=== PATIENT | female | born 1995 | race Caucasian/White ===

== ENCOUNTER → 2017-08-24 | Outpatient (CLI) | payer BC ==
--- NOTE | 2017-08-24 11:53 | Diagnostic Imaging Report ---
OB ultrasound. INDICATION: Spotting. By history, the patient has a positive test. There are no previous exams available for comparison. FINDINGS: The uterus is nongravid and not enlarged measuring 7.6 x 3.4 x 4.7 cm. The endometrial lining is thickened measuring 12 mm (normal 5 mm or less). This finding is nonspecific, however. Correlation with the patient's menstrual cycle would be recommended. There is no focal mass involving the uterus to suggest a fibroid. Both ovaries were identified. Each ovary contains a few subcentimeter follicles. There is also a roughly 1 cm cyst associated with the right ovary. This cyst has a generally benign appearance. There is no solid pelvic mass or free fluid collection to suggest an ectopic . IMPRESSION: 1. There is no evidence for a gestational sac within the uterus. If the patient does indeed have a positive test, then the possibility that there is an ectopic should be the primary concern even though there is no pelvic mass or free fluid collection identified. The absence of a gestational sac within the uterus could also be related to an early or to a blighted ovum. Correlation with the patient's beta hCG levels would be recommended. 2. There are small subcentimeter follicles associated with both ovaries and there is a benign-appearing 1 cm cyst arising from the right ovary. Dictated by: Dictated on workstation # [id number]
== END ==
LOC: RAD 10:46
PROVIDERS: ATTEND Family Medicine
DX: N83.291 Other ovarian cyst, right side (principal)
CPT/HCPCS: 76801; 76817

== ENCOUNTER 2017-09-14 18:41 | Emergency (ER) | payer BC ==
[~2017-09-14] VITALS: Ht 160 cm; Wt 60.8 kg
--- OUTSIDE RECORDS SUMMARY | 2017-09-14 18:46 | XMS REPORT ---
Author Author ROSALBA POWER Organization [employer] Address Unknown Phone Unavailable Care Team Providers Care Waste Baler Name Role Phone ROSALBA POWER CP Unavailable Allergies, Adverse Reactions, Alerts Substance Reaction Event Type N.K.D.A. Info Not Available Non Drug Allergy Problems Problem Type Condition Code Onset Dates Condition Status Assessment Acute pharyngitis, unspecified etiology J02.9 Active Medications Medication Code System Code Instructions Start Date End Date Status Dosage Penicillin V Potassium [facility] [address]-15 500 MG Orally 2 times a day MayJun 13, 2016 1 tablet Procedures Procedure Coding System Code Date STREP A ASSAY W/OPTIC CPT-4 08736 Jun 03, 2016 Office Visit, New Pt., Level 3 CPT-4 66557 Jun 03, 2016 Vital Signs Date/Time: Jun 03, 2016 Cardiac Monitoring Heart Rate 99 bpm Weight 117 lbs Height 63.5 in BMI 20.40 Index Blood Pressure Diastolic 68 mmHg Blood Pressure Systolic 102 mmHg Results Name Result Date Reference Range Unit Abnormality Flag STREP A (IN HOUSE) ----STREP A neg [id number] ----Control + [id number] ----Lot # [id number] ----Exp date [id number] Summary Purpose [employer] Submission
--- NOTE | 2017-09-14 20:03 | Diagnostic Imaging Report ---
INDICATION: Status post fall. Lateral ankle pain EXAMINATION: Right ankle dated 09/14/2017 FINDINGS: Three views of the ankle. Diffuse soft tissue prominence noted with no fracture seen at the ankle. The ankle mortise is intact and the talar dome is unremarkable. Along the lateral aspect of the possibly midfoot there is a very vague increased density noted laterally perhaps a small avulsion fracture. Correlate for point tenderness. This is best seen on the frontal view. IMPRESSION: 1. Density in the lateral aspect of the foot distal to the tip of the lateral malleolus; correlate for point tenderness. 2. Diffuse soft tissue swelling. Dictated by: Dictated on workstation # [id number]
--- NOTE | 2017-09-14 20:22 | Diagnostic Imaging Report ---
INDICATION: Foot pain after fall EXAMINATION: Right foot 09/14/2017 FINDINGS: Three views of the foot demonstrate soft tissue prominence anteriorly at the level of the midfoot and ankle. Within the osseous structures on the frontal view there is a linear density just proximal to the lateral aspect of the cuboid possibly a tiny avulsion fracture. Correlate for point tenderness. The remaining osseous structures are intact. There are no dislocations. IMPRESSION: 1. Possible avulsion fracture in the lateral aspect of the midfoot, its origin is unclear and could be from the adjacent cuboid or calcaneus. Correlate for point tenderness. 2. Marked soft tissue swelling. Dictated by: Dictated on workstation # [id number]
[2017-09-14] MEDS ORDERED: RX-HYDROCODONE/APAP 5/325 MG #4 TAB PK PO ONE (21:17)
--- NOTE | 2017-09-14 21:18 | ED Lower Extremity ---
General Chief Complaint: Lower Extremity Stated Complaint: R FOOT PAIN AFTER/SWELLING Nursing Triage Note: PT HERE WITH C/O L ANKLE/FOOT PAIN AFTER FALLING DOWN 5 STAIRS. DENIES HEAD AND NECK PAIN. Nursing Sepsis Screen: No Definite Risk Source: patient Exam Limitations: no limitations History of Present Illness Date Seen by Provider: Sep 14, 2017 Time Seen by Provider: 21:00 Initial Comments Here with complaint of right ankle pain after slipping down some steps and rolling her ankle medially. Pain to the lateral aspect of the right ankle and to the lateral aspect of the right midfoot. Denies other injury. Hurts when she walks on it. Onset: this afternoon Severity: moderate Pain/Injury Location: right ankle Method of Injury: fell, twisted Modifying Factors: Worse With Movement Allergies and Home Medications Allergies Coded Allergies: No Known Drug Allergies (Verified Allergy, Unknown, 06/20/08) Constitutional: see HPI, No chills, No fever Respiratory: no symptoms reported Cardiovascular: no symptoms reported Musculoskeletal: see HPI, joint pain, joint swelling, muscle pain Skin: change in color, No lesions Psychiatric/Neurological: No Symptoms Reported Past Oitozqm-Iwbxzg-Wmlcyo Hx Patient Social History Alcohol Use: Occasionally Uses Recreational Drug Use: No Smoking Status: Never a Smoker Recent Foreign Travel: No Contact w/Someone Who Travel: No Recent Infectious Disease Expo: No Surgeries History of Surgeries: Yes (I&D) Respiratory History of Respiratory Disorde: No Cardiovascular History of Cardiac Disorders: No Neurological History of Neurological Disord: No Reproductive System : No Hx Reproductive Disorders: Yes (miscarriage 1) Reviewed Nursing Assessment Reviewed/Agree w Nursing PMH: Yes Family Medical History Significant Family History: No Pertinent Family Hx Physical Exam Vital Signs Vital Sign - Last 12Hours 09/14/17 19:11 Temp 98.2 Pulse 105 Resp 16 B/P (MAP) 106/62 (77) Pulse Ox 99 O2 Delivery Room Air Capillary Refill : Less Than 3 Seconds General Appearance: WD/WN, no apparent distress Cardiovascular: regular rate, rhythm, no murmur Respiratory: lungs clear, normal breath sounds Ankles: left ankle non-tender, left ankle normal inspection, left ankle normal range of motion, right ankle limited range of motion, right ankle pain, right ankle soft tissue tenderness, right ankle swelling, right ankle other (pain to the lateral aspect of the right ankle from the lateral malleolus through the area of the mid foot. Associated swelling and tenderness noted with mild ecchymosis. Distal sensation and circulation intact.) Neurologic/Psychiatric: alert, oriented x 3 Skin: normal color, warm/dry Progress/Results/Core Measures Results/Orders My Orders Orders - MARY ALICE SALAS MD Foot, Right, 3 View (09/14/17 19:26) Ankle, Right, 3 Views (09/14/17 19:26) Stnoe Bandage (09/14/17 21:09) Crutches (09/14/17 21:09) Steplite (09/14/17 21:09) Vital Signs/I&O Vital Sign - Last 12Hours 09/14/17 19:11 Temp 98.2 Pulse 105 Resp 16 B/P (MAP) 106/62 (77) Pulse Ox 99 O2 Delivery Room Air Blood Pressure Mean: 77 Progress Note : Progress Note Seen and evaluated. X-ray right ankle and right foot. Question avulsion fracture of the mid foot and lateral malleolus. Boot applied after Stone wrap. We will give crutches. Patient to follow up with orthopedist listed her orthopedist of choice. Discharged home with return precautions. Patient verbalize understanding instructions and agreement with plan. Diagnostic Imaging Diagonstic Imaging: Xray Plain Films/CT/US/NM/MRI: ankle Comments VIA [facility]. [place], [place] NAME: PRATIBHA GRAY [facility] REC#: [id number] PT STATUS: REG ER : 1995 PHYSICIAN: MARY ALICE SALAS MD ADMIT DATE: 09/14/17/ER Draft Date of Exam:09/14/17 ANKLE, RIGHT, 3 VIEWS INDICATION: Status post fall. Lateral ankle pain EXAMINATION: Right ankle dated 09/14/2017 FINDINGS: Three views of the ankle. Diffuse soft tissue prominence noted with no fracture seen at the ankle. The ankle mortise is intact and the talar dome is unremarkable. Along the lateral aspect of the possibly midfoot there is a very vague increased density noted laterally perhaps a small avulsion fracture. Correlate for point tenderness. This is best seen on the frontal view. IMPRESSION: 1. Density in the lateral aspect of the foot distal to the tip of the lateral malleolus; correlate for point tenderness. 2. Diffuse soft tissue swelling. Dictated on workstation # [id number] Dict: 09/14/171956 Trans: 09/14/[address] [place] [id number] Interpreted by: NIR POZO MD Electronically signed by: Diagonstic Imaging: Xray Comments VIA [facility]. [place], [place] NAME: PRATIBHA GRAY [facility] REC#: [id number] PT STATUS: REG ER : 1995 PHYSICIAN: MARY ALICE SALAS MD ADMIT DATE: 09/14/17/ER Draft Date of Exam:09/14/17 FOOT, RIGHT, 3 VIEW INDICATION: Foot pain after fall EXAMINATION: Right foot 09/14/2017 FINDINGS: Three views of the foot demonstrate soft tissue prominence anteriorly at the level of the midfoot and ankle. Within the osseous structures on the frontal view there is a linear density just proximal to the lateral aspect of the cuboid possibly a tiny avulsion fracture. Correlate for point tenderness. The remaining osseous structures are intact. There are no dislocations. IMPRESSION: 1. Possible avulsion fracture in the lateral aspect of the midfoot, its origin is unclear and could be from the adjacent cuboid or calcaneus. Correlate for point tenderness. 2. Marked soft tissue swelling. Dictated on workstation # [id number] Dict: 09/14/171955 Trans: 09/14/172020 [id number] Interpreted by: NIR POZO MD Electronically signed by: Departure Impression Impression: Primary Impression: Avulsion fracture of distal fibula Additional Impression: Sprain and strain of foot Disposition: 01 HOME, SELF-CARE Condition: Stable Departure-Patient Inst. Decision time for Depature: 21:21 Referrals: ANDREW BRUCE MD (PCP/Family) Primary Care Physician Patient Instructions: Foot Fracture (DC), Ankle Fracture (DC) Add. Discharge Instructions: All discharge instructions reviewed with patient and/or family. Voiced understanding. Use walking boot and crutches for stability for the next one to 2 weeks and then as needed for further direction on the orthopedic surgeon. Follow-up with orthopedic surgeon listed or of your choice within one week for recheck and further evaluation. Call Dr. Flores's office in the morning for appointment. Return for worse pain, fever, swelling, weakness or other concerns as needed. You may take ibuprofen 600 mg every 8 hours as needed for pain. You may take the pain medication listed as directed. When you are out of that you may add Tylenol 1000 mg every 8 hours as needed for pain as well but do not take them together as they both have acetaminophen in then. Copy Copies To 1: KRISTOFER FLORES MD, TIMOTHY D MD Sep 14, 2017 21:18
[2017-09-14 21:23] VITALS: BP 0/0
[2017-09-14] MEDS ORDERED: RX-HYDROCODONE/APAP 5/325 MG #4 TAB PK PO PRN (21:30)
== END 2017-09-14 21:23 | disposition home or self-care (01) ==
LOC: EDUNIT# 18:41 → ER 18:43
DX: S82.831A Other fracture of upper and lower end of right fibula, initial encounter for closed fracture (principal); Z87.59 Personal history of other complications of pregnancy, childbirth and the puerperium; W10.9XXA Fall (on) (from) unspecified stairs and steps, initial encounter; X50.0XXA Overexertion from strenuous movement or load, initial encounter
CPT/HCPCS: 73610; 73630; 99283

== ENCOUNTER 2017-10-18 16:15 | Emergency (ER) | payer BC ==
[~2017-10-18] VITALS: Ht 160 cm; Wt 58.1 kg
--- NOTE | 2017-10-18 17:14 | ED GU-Female ---
General Chief Complaint: -Female Stated Complaint: POSS MISCARRIAGE Nursing Triage Note: PT REPORTS STARTED BLEEDING DARK BROWN SPOTTING 4 DAYS AGO. THIS AM STARTED HAVING CRAMPING AND BRIGHT RED VAGINAL BLEEDING. PT REPORTS SHE TOOK A POSITIVE PREG TEST 1-2 WEEKS AGO, BUT HAS NOT SEEN A OBGYN YET. Nursing Sepsis Screen: No Definite Risk History of Present Illness Date Seen by Provider: Oct 18, 2017 Time Seen by Provider: 17:05 Initial Comments 22-year-old female reports 3 previous miscarriages, first one being in December 2015, second one April 2017 and third one in August 2017. Since the miscarriage in August 2017 she has not had a menstrual cycle. She reports 1-2 weeks ago having a positive urine test. She has not seen her primary care provider for this. 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 She reports approximately 2-3 days of brown vaginal discharge, today she began to have bright red discharge. She has been using thin pads and has gone through approximately 3 with trace amount of bleeding on each one. She does report mild lower abdominal cramping, she has not taken any pain medication for this. Patient is not emotionally upset about the risk of a miscarriage. She actually displays some inappropriate behaviors and laughing at comments. Her boyfriend is present with her. Timing/Duration: changing over time Severity/Quality: mild Location: suprapubic Radiation: none Sexual [place] History: single partner Associated Symptoms: abdominal pain, No fever/chills, No loss of bladder control, No lower back pain, No nausea/vomiting, No polyuria, No syncope, No urinary frequency Allergies and Home Medications Allergies Coded Allergies: No Known Drug Allergies (Verified Allergy, Unknown, 06/20/08) Home Medications No Active Prescriptions or Reported Meds Patient Home Medication List Home Medication List Reviewed: Yes Constitutional: no symptoms reported, see HPI Genitourinary: see HPI, discharge, other (bloody vaginal discharge) : No (negative urine hCG) Past Yhgpljb-Mtxcho-Orpkij Hx Patient Social History Alcohol Use: Denies Use Recreational Drug Use: No Smoking Status: Never a Smoker Recent Foreign Travel: No Contact w/Someone Who Travel: No Recent Infectious Disease Expo: No Recent Hopitalizations: No Physical Abuse: No Sexual Abuse: No Mistreated: No Fear: No Surgeries History of Surgeries: Yes (I&D) Respiratory History of Respiratory Disorde: No Cardiovascular History of Cardiac Disorders: No Neurological History of Neurological Disord: No Reproductive System Hx Total # of Abortions (Spona: 4 Hx Reproductive Disorders: Yes (miscarriage 1) Sexually Transmitted Disease: No Genitourinary History of Genitourinary Disor: No Gastrointestinal History of Gastrointestinal Di: No Musculoskeletal History of Musculoskeletal Dis: No Endocrine History of Endocrine Disorders: No HEENT History of HEENT Disorders: No Cancer History of Cancer: No Psychosocial History of Psychiatric Problem: No Suicide Risk Score: 0 Integumentary History of Skin or Integumenta: No Blood Transfusions History of Blood Disorders: No Reviewed Nursing Assessment Reviewed/Agree w Nursing PMH: Yes Family Medical History Significant Family History: No Pertinent Family Hx Physical Exam Vital Signs Vital Signs - First Documented 10/18/17 16:30 Temp 97.0 Pulse 112 Resp 18 B/P (MAP) 134/89 (104) Pulse Ox 99 Capillary Refill : Less Than 3 Seconds General Appearance: WD/WN, no apparent distress HEENT: PERRL/EOMI, normal ENT inspection, TMs normal, pharynx normal Neck: non-tender, full range of motion, supple, normal inspection Cardiovascular: normal peripheral pulses, regular rate, rhythm, no murmur Respiratory: chest non-tender, lungs clear, normal breath sounds Gastrointestinal: normal bowel sounds, non tender, soft, No rebound, No tenderness Back: normal inspection, no CVA tenderness Extremities: normal range of motion, non-tender, normal inspection, normal capillary refill Neurologic/Psychiatric: no motor/sensory deficits, alert, normal mood/affect, oriented x 3 Skin: normal color, warm/dry Progress/Results/Core Measures Suspected Sepsis Recent Fever Within 48 Hours: No Infection Criteria Present: None New/Unexplained Altered Menta: No Sepsis Screen: No Definite Risk Sepsis Diagnosis: SIRS Temperature:97.0 Pulse: 112 Respiratory Rate: 18 Blood Pressure 134 /89 Mean: 104 Results/Orders Lab Results Laboratory Tests Test 10/18/17 16:47 Range/Units Urine Color YELLOW Urine Clarity SLIGHTLY CLOUDY Urine pH 5 5-9 Urine Specific [place] 1.025 H 1.016-1.022 Urine Protein NEGATIVE NEGATIVE Urine Glucose (UA) NEGATIVE NEGATIVE Urine Ketones 1+ H NEGATIVE Urine Nitrite NEGATIVE NEGATIVE Urine Bilirubin NEGATIVE NEGATIVE Urine Urobilinogen NORMAL NORMAL MG/DL Urine Leukocyte Esterase 1+ H NEGATIVE Urine RBC (Auto) 5+ H NEGATIVE Urine RBC 10-25 H /HPF Urine WBC 2-5 /HPF Urine Squamous Epithelial Cells 5-10 /HPF Urine Crystals PRESENT H /LPF Urine Amorphous Sediment FEW PEPE URATES H /LPF Urine Bacteria NONE /HPF Urine Casts NONE /LPF Urine Mucus MODERATE H /LPF Urine Culture Indicated NO My Orders Orders - KOFI LOU Ua Culture If Indicated (10/18/17 16:18) Urine Bedside (10/18/17 16:18) Vital Signs/I&O Vital Sign - Last 12Hours 10/18/17 16:30 Temp 97.0 Pulse 112 Resp 18 B/P (MAP) 134/89 (104) Pulse Ox 99 Capillary Refill : Less Than 3 Seconds Blood Pressure Mean: 104 Point of Care Testing Urine -Bedside: Negative Progress Note : Progress Note Initial evaluation completed, discussed at length with the patient the importance of follow-up with her primary care provider. She declined need for pain management at this time. She did request a note for work for today and tomorrow. Discharge instructions and return precautions reviewed with the patient, all questions answered. Departure Impression Impression: Primary Impression: Miscarriage Disposition: 01 HOME, SELF-CARE Condition: Stable Departure-Patient Inst. Decision time for Depature: 17:20 Referrals: ANDREW BRUCE MD (PCP/Family) Primary Care Physician Patient Instructions: Miscarriage (DC) Add. Discharge Instructions: Complete vaginal rest, no intercourse, tampons, or douching. Increase water intake. Drink 1-2 glass of cranberry juice daily. You may take Tylenol 650 mg alternating with ibuprofen 600 mg every 4 hours for cramping or pain. Schedule follow-up appointment with Dr. Bruce. Return to emergency department for excessive bleeding (saturating a maximum absorbancy pad hourly for more than 2-3 hours in a row), fever greater than 101 , weakness or fainting, or new problems. All discharge instructions reviewed with patient and/or family. Voiced understanding. Scripts No Active Prescriptions or Reported Meds Work/School Note: Work Release Form Date Seen in the Emergency Department: Oct 18, 2017 Return to Work: Oct 20, 2017 Restrictions: No Restrictions Copy Copies To 1: ANDREW BRUCE MD, AMY ARNP Oct 18, 2017 17:14
[2017-10-18 17:26] LABS: BILIRUBIN,URINE NEGATIVE (NEGATIVE); CLARITY,URINE SLIGHTLY CLOUDY; COLOR,URINE YELLOW; GLUCOSE, URINE (UA) NEGATIVE (NEGATIVE); KETONES,URINE 1+ (NEGATIVE); LEUKOCYTE ESTERASE ,URINE 1+ (NEGATIVE); NITRITE,URINE NEGATIVE (NEGATIVE); PH,URINE 5 (5-9); PROTEIN,URINE NEGATIVE (NEGATIVE); UROBILINOGEN,URINE NORMAL (NORMAL)
[2017-10-18 17:27] LABS: AMORPHOUS SEDIMENT,UR FEW AMOR URATES /LPF
[2017-10-18 17:39] VITALS: BP 123/75
== END 2017-10-18 17:39 | disposition home or self-care (01) ==
LOC: EDUNIT# 16:15 → ER 16:17
DX: O03.9 Complete or unspecified spontaneous abortion without complication (principal); Z87.59 Personal history of other complications of pregnancy, childbirth and the puerperium; Z86.19 Personal history of other infectious and parasitic diseases; Z3A.00 Weeks of gestation of pregnancy not specified
CPT/HCPCS: 81000; 84703; 99283

== ENCOUNTER → 2017-10-22 | Outpatient (CLI) | payer BC ==
--- NOTE | 2017-10-22 13:15 | Diagnostic Imaging Report ---
Procedure: OB Ultrasound. Indication: Miscarriage. Findings: The previous OB ultrasound exam performed on 08/24/2017 failed to show any sign of a gestational sac within the uterus. On this study, there is still no evidence for a gestational sac within the uterus. The uterus is not enlarged measuring 6.9 x 5.1 x 4.0 cm. The endometrial line is thickened measuring 9 mm (normal 5 mm or less). This finding is nonspecific however. Correlation with the patient's menstrual cycle would be recommended. If there is clinical concern that the patient is , then correlation to the patient's beta HCG levels should be obtained as well. There is no focal mass involving the uterus to suggest a fibroid. Both ovaries were identified. There is a 1.2 cm cyst associated with the right ovary. This has a generally benign appearance. A few subcentimeter follicles are also seen in the right ovary. The left ovary contains a few subcentimeter follicles as well. There is good blood flow to each ovary. There is no pelvic mass or free fluid collection evident. Impression: 1. The endometrial lining is slightly thickened but there is no evidence for a gestational sac within the uterus. Correlation with the patient's menstrual cycle and beta HCG level will be recommended. 2. There is a small benign-appearing cyst associated with the right ovary. There is no acute pelvic abnormality noted otherwise. Dictated by: Dictated on workstation # [id number]
== END ==
LOC: RAD 11:18
PROVIDERS: ATTEND Family Medicine
DX: O03.9 Complete or unspecified spontaneous abortion without complication (principal); N83.291 Other ovarian cyst, right side
CPT/HCPCS: 76801; 76817